=== PATIENT | male | born 1945 | race Caucasian/White ===

== ENCOUNTER 2020-10-15 13:47 | Observation (INO) ==
[2020-10-15 15:58] LABS: ABS Basophils 0.1 10^3/ul (0-0.2); ABS Eosinophils 0.1 10^3/ul (0-0.6); ABS Lymphocytes 1.7 10^3/ul (1.0-4.8); ABS Monocytes 0.6 10^3/ul (0-0.8); ABS Neutrophils 4.9 10^3/ul (1.5-7.7); Eosinophil % 1.8 %; Hematocrit 41 % (42-52); Hemoglobin 14.4 g/dL (14.0-18.0); Lymphocyte % 23.4 %; Mean Corpuscular HGB Conc 35 g/dL (31-36); Mean Corpuscular Hemoglobin 31 pg (27-31); Mean Corpuscular Volume 89 fL (80-94); Mean Platelet Volume 8.8 fL (7.4-10.4); Nucleated Red Blood Cells % 0.1; Platelet Count 135 10^3/uL (150-450); Red Blood Count 4.61 10^6 /uL (4.18-5.48); Red Cell Distribution Width 13 % (10-15); White Blood Count 7.4 10^3/uL (3.5-10.8)
[2020-10-15 16:14] LABS: Troponin I 0.01 ng/mL (<0.03)
[2020-10-15 16:15] LABS: Albumin 4.1 g/dL (3.2-5.2); Albumin/Globulin Ratio 1.5 (1-3); BUN/Creatinine Ratio 18.7 (8-20); EGFR African American 123.2 (>60); EGFR Non-African American 101.8 (>60); Globulin 2.7 g/dL (2-4); Magnesium 1.7 mg/dL (1.9-2.7); Potassium 4.1 mmol/L (3.5-5.0); Total Protein 6.8 g/dL (6.4-8.9)
[2020-10-15 16:30] LABS: Urine Appearance Clear; Urine Bilirubin Negative (Negative); Urine Blood Negative (Negative); Urine Color Yellow; Urine Glucose Negative (Negative); Urine Ketones Negative (Negative); Urine Nitrite Negative (Negative); Urine Protein Negative (Negative); Urine Specific Gravity 1.012 (1.010-1.030); Urine Urobilinogen Negative (Negative)
[2020-10-15 16:41] LABS: TSH Ultra Thyroid Stim Horm 2.02 mcIU/mL (0.34-5.60)
[2020-10-15] MEDS ORDERED: Ondansetron 4 mg VIAL 2 MG/ML 2 ml VIAL IV PRN (17:05)
[2020-10-15] MEDS ORDERED: Magnesium Hydroxide LIQ 30 ML UDC PO PRN (17:05)
[2020-10-15] MEDS ORDERED: NS 0.9% 1000 ml BAG 1,000 ML IV SCH (17:15)
[2020-10-15] MEDS ORDERED: NS 0.9% 1000 ml BAG 1,000 ML IV ONE (17:22)
[2020-10-16 05:39] LABS: BUN/Creatinine Ratio 17.7 (8-20); Calcium 7.9 mg/dL (8.6-10.3); EGFR Non-African American 95.9 (>60); Magnesium 1.8 mg/dL (1.9-2.7); Potassium 4.2 mmol/L (3.5-5.0)
[2020-10-16] MEDS ORDERED: Perflutren Lipid Microsphere 3 ML VIAL ONE (07:58)
[2020-10-16] MEDS ORDERED: Magnesium Sulfate 2 gm BAG 2 GM/50 ML BAG IVPB ONE (08:34)
[2020-10-16 11:41] VITALS: BP 110/74
== END 2020-10-16 12:48 | disposition home or self-care (01) ==
LOC: ED 13:47 → MEDTELE 13:47
PROVIDERS: ADMIT Pediatrics; ATTEND Internal Medicine

== ENCOUNTER 2024-07-18 18:42 | Inpatient (IN) ==
[2024-07-18] MEDS: NS 0.9% 1000 ml BAG 1,000 ML IV ONE (19:55)
[2024-07-18 20:02] LABS: ABS Basophils 0.1 10^3/uL (0.0-0.1); ABS Eosinophils 0.1 10^3/uL (0.0-0.5); ABS Lymphocytes 1.2 10^3/uL (1.0-4.8); ABS Monocytes 0.4 10^3/uL (0.0-1.1); ABS Neutrophils 7.1 10^3/uL (1.5-7.6); Hematocrit 37.7 % (38-53); Hemoglobin 12.8 g/dL (13.2-16.3); Mean Corpuscular Hemoglobin 30.4 pg (27-33); Mean Corpuscular Volume 89.2 fL (80-97); Mean Platelet Volume 7.8 fL (7.5-11.2); Platelet Count 153 10^3/uL (150-450); Red Blood Count 4.22 10^6/uL (4.06-5.63); White Blood Count 8.9 10^3/uL (3.6-10.2)
[2024-07-18 20:21] LABS: Activated Partial Thrombo Time 39.4 seconds (26.0-38.0); INR 1.39 (0.85-1.14)
[2024-07-18 20:48] LABS: Albumin/Globulin Ratio 1.5 (1-3); Calcium 8.9 mg/dL (8.6-10.3); Creatinine, Serum 0.72 mg/dL (0.67-1.17); Globulin 2.7 g/dL (2-4); Potassium 4.3 mmol/L (3.5-5.0); Total Bilirubin 0.9 mg/dL (0.2-1.0); Total Protein 6.7 g/dL (6.4-8.9); eGFR CKD-EPI 93.5 (>60)
[2024-07-18] MEDS ORDERED: Sulfur Hexaflouride MICROSPHR 25 MG VIAL IV PRN (22:26)
[2024-07-18 22:45] LABS: Magnesium 1.8 mg/dL (1.9-2.7)
[2024-07-18 23:00] LABS: TSH Ultra Thyroid Stim Horm 4.19 mcIU/mL (0.34-5.60)
[2024-07-18] MEDS: Furosemide 20 mg/2 ml IV VIAL IV ONE (23:37)
[2024-07-19] MEDS: Magnesium Sulfate 2 gm BAG 2 GM/50 ML BAG IVPB ONE (02:36)
[2024-07-19 05:32] LABS: ABS Basophils 0.1 10^3/uL (0.0-0.1); ABS Eosinophils 0.2 10^3/uL (0.0-0.5); ABS Lymphocytes 1.5 10^3/uL (1.0-4.8); ABS Monocytes 0.7 10^3/uL (0.0-1.1); ABS Neutrophils 7.6 10^3/uL (1.5-7.6); ABS Nucleated RBC 0.01 10^3/ul; Eosinophil % 1.8 %; Hematocrit 34.5 % (38-53); Hemoglobin 12.1 g/dL (13.2-16.3); Lymphocyte % 14.8 %; Mean Corpuscular Hemoglobin 31.1 pg (27-33); Mean Corpuscular Hgb Conc 34.9 g/dL (31-36); Mean Corpuscular Volume 89.1 fL (80-97); Mean Platelet Volume 7.8 fL (7.5-11.2); Platelet Count 130 10^3/uL (150-450); Red Blood Count 3.87 10^6/uL (4.06-5.63); Red Cell Distribution Width 14.1 % (12-17); White Blood Count 10.1 10^3/uL (3.6-10.2)
[2024-07-19 06:01] LABS: Calcium 8.1 mg/dL (8.6-10.3); Creatinine, Serum 0.74 mg/dL (0.67-1.17); Magnesium 2.3 mg/dL (1.9-2.7); Potassium 3.9 mmol/L (3.5-5.0); eGFR CKD-EPI 92.7 (>60)
[2024-07-19 06:25] LABS: Ferritin 143.2 ng/mL (24-336)
[2024-07-19 06:27] LABS: Folate 15.37 ng/mL (5.90-24.80)
[2024-07-19 06:32] LABS: Vitamin D Total 25(OH) 25.8 ng/mL (20-50)
[2024-07-19] MEDS: Lactated Ringers 1000 ml BAG 500 ML IV ONE ×2 (15:23→22:46)
[2024-07-19 15:48] LABS: ABS Basophils 0.1 10^3/uL (0.0-0.1); ABS Eosinophils 0.3 10^3/uL (0.0-0.5); ABS Lymphocytes 1.2 10^3/uL (1.0-4.8); ABS Monocytes 0.7 10^3/uL (0.0-1.1); ABS Neutrophils 6.7 10^3/uL (1.5-7.6); ABS Nucleated RBC 0.01 10^3/ul; Eosinophil % 3.4 %; Hematocrit 34.9 % (38-53); Hemoglobin 11.9 g/dL (13.2-16.3); Mean Corpuscular Hemoglobin 30.4 pg (27-33); Mean Corpuscular Volume 89.6 fL (80-97); Mean Platelet Volume 7.8 fL (7.5-11.2); Nucleated Red Blood Cells % 0.1 %/100WBC (0.0-0.8); Platelet Count 133 10^3/uL (150-450)
[2024-07-19] MEDS ORDERED: Morphine 2 MG/ML SYRINGE IV PRN (19:36)
[2024-07-19] MEDS: Enoxaparin 40 MG/0.4 ML SYR SUBCUT SCH (22:12)
[2024-07-20 03:20] LABS: ABS Basophils 0.1 10^3/uL (0.0-0.1); ABS Eosinophils 0.2 10^3/uL (0.0-0.5); ABS Lymphocytes 1.5 10^3/uL (1.0-4.8); ABS Monocytes 0.8 10^3/uL (0.0-1.1); ABS Neutrophils 7.1 10^3/uL (1.5-7.6); Eosinophil % 2.5 %; Hematocrit 33.9 % (38-53); Hemoglobin 11.6 g/dL (13.2-16.3); Lymphocyte % 15.6 %; Mean Corpuscular Hemoglobin 30.5 pg (27-33); Mean Corpuscular Hgb Conc 34.3 g/dL (31-36); Mean Corpuscular Volume 89.1 fL (80-97); Mean Platelet Volume 8.1 fL (7.5-11.2); Platelet Count 130 10^3/uL (150-450); Red Blood Count 3.81 10^6/uL (4.06-5.63); White Blood Count 9.8 10^3/uL (3.6-10.2)
[2024-07-20 03:50] LABS: Calcium 8.1 mg/dL (8.6-10.3); Creatinine, Serum 0.7 mg/dL (0.67-1.17); Magnesium 1.8 mg/dL (1.9-2.7); Potassium 3.8 mmol/L (3.5-5.0); eGFR CKD-EPI 94.3 (>60)
[2024-07-20] MEDS ORDERED: Senna TAB 8.6 mg TAB PO PRN (06:15)
[2024-07-20] MEDS ORDERED: Polyethylene Glycol 3350 17 GM PACKET PO PRN (06:15)
[2024-07-20] MEDS: Magnesium Sulfate 2 gm BAG 2 GM/50 ML BAG IVPB ONE (09:54)
[2024-07-20 13:12] LABS: ABS Basophils 0.1 10^3/uL (0.0-0.1); ABS Eosinophils 0.1 10^3/uL (0.0-0.5); ABS Lymphocytes 1.2 10^3/uL (1.0-4.8); ABS Monocytes 0.8 10^3/uL (0.0-1.1); ABS Neutrophils 7.5 10^3/uL (1.5-7.6); Eosinophil % 1.4 %; Hematocrit 33.4 % (38-53); Hemoglobin 11.8 g/dL (13.2-16.3); Mean Corpuscular Hemoglobin 31.3 pg (27-33); Mean Corpuscular Hgb Conc 35.2 g/dL (31-36); Mean Corpuscular Volume 88.9 fL (80-97); Platelet Count 121 10^3/uL (150-450); Red Blood Count 3.76 10^6/uL (4.06-5.63); White Blood Count 9.7 10^3/uL (3.6-10.2)
[2024-07-20] MEDS: NS 0.9% IV ONE ×2 (15:00→17:54)
[2024-07-20] MEDS: Calcium Carb (TUMS) 500 mg CHEW TAB PO PRN (18:23)
[2024-07-21] MEDS: Acetaminophen IV 1 GM/100ML 1,000 MG/100 ML BAG IV ONE (05:28)
[2024-07-21 07:00] LABS: ABS Eosinophils 0.2 10^3/uL (0.0-0.5); ABS Monocytes 0.8 10^3/uL (0.0-1.1); ABS Neutrophils 6.1 10^3/uL (1.5-7.6); Eosinophil % 2.3 %; Hematocrit 31.5 % (38-53); Hemoglobin 11.3 g/dL (13.2-16.3); Lymphocyte % 12.2 %; Mean Corpuscular Hemoglobin 31.5 pg (27-33); Mean Corpuscular Hgb Conc 35.9 g/dL (31-36); Mean Corpuscular Volume 87.8 fL (80-97); Mean Platelet Volume 7.6 fL (7.5-11.2); Platelet Count 109 10^3/uL (150-450); Red Blood Count 3.59 10^6/uL (4.06-5.63); Red Cell Distribution Width 13.7 % (12-17); White Blood Count 8.1 10^3/uL (3.6-10.2)
[2024-07-21 07:37] LABS: Calcium 7.4 mg/dL (8.6-10.3); Creatinine, Serum 0.55 mg/dL (0.67-1.17); Magnesium 1.9 mg/dL (1.9-2.7); Potassium 3.6 mmol/L (3.5-5.0); eGFR CKD-EPI 101.4 (>60)
[2024-07-21 08:14] LABS: Urine Appearance Clear; Urine Bilirubin Negative (Negative); Urine Blood Negative (Negative); Urine Color Yellow; Urine Glucose Negative (Negative); Urine Ketones Negative (Negative); Urine Nitrite Negative (Negative); Urine Protein Negative (Negative); Urine Specific Gravity 1.021 (1.002-1.030); Urine Urobilinogen Negative (Negative)
[2024-07-21] MEDS: Magnesium Sulfate 2 gm BAG 2 GM/50 ML BAG IVPB ONE (08:34)
[2024-07-21] MEDS: Potassium Chlor 20 meq TAB.ER PO ONE (08:52)
[2024-07-21] MEDS: Furosemide 20 mg/2 ml IV VIAL IV SLOW PU ONE (11:11)
[2024-07-21] MEDS ORDERED: Dexamethasone IV 4 MG/ML VIAL 1 ml VIAL ONE (14:13)
[2024-07-21] MEDS ORDERED: Propofol 10 MG/ML 20 ML BTL ONE (14:39)
[2024-07-21] MEDS ORDERED: Lidocaine 2% PF 5 ML VIAL ONE (14:39)
[2024-07-21] MEDS ORDERED: ceFAZolin 2 GM PREMIX 2 GM/50 ML BAG ONE (14:57)
[2024-07-21] MEDS ORDERED: ROPIVACAINE 5 MG/ML 30 ML BTL (0.5%) ONE (15:34)
[2024-07-21] MEDS ORDERED: Rocuronium 50 mg VIAL 10 mg/ml 5 ml VIAL (50 mg) ONE (15:57)
[2024-07-21] MEDS ORDERED: Midazolam 2 mg/2 ml VIAL 1 mg/ml 2 ml VIAL (2 mg) ONE (16:16)
[2024-07-21] MEDS ORDERED: fentaNYL 100 mcg/2 ml 50 MCG/ML VIAL ONE (16:16)
[2024-07-21] MEDS ORDERED: Ondansetron 4 mg VIAL 2 MG/ML 2 ml VIAL ONE (17:10)
[2024-07-21] MEDS ORDERED: Acetaminophen IV 1 GM/100ML 1,000 MG/100 ML BAG IV ONE (18:05)
[2024-07-21] MEDS ORDERED: Bacitracin OINTMENT TUBE ONE (18:54)
[2024-07-21] MEDS ORDERED: Magnesium Hydroxide LIQ 30 ML UDC PO PRN (19:18)
[2024-07-21] MEDS ORDERED: Polyethylene Glycol 3350 17 GM PACKET PO PRN (19:18)
[2024-07-21] MEDS: NS 0.9% 1000 ml BAG 1,000 ML IV SCH (21:05)
[2024-07-21] MEDS: Furosemide 20 mg/2 ml IV VIAL IV SLOW PU SCH (21:05)
[2024-07-22] MEDS: Magnesium Hydroxide LIQ 30 ML UDC PO SCH (00:17)
[2024-07-22] MEDS: ceFAZolin 2 GM PREMIX 2 GM/50 ML BAG IV SCH (00:35)
[2024-07-22 06:33] LABS: ABS Lymphocytes 0.5 10^3/uL (1.0-4.8); ABS Monocytes 0.4 10^3/uL (0.0-1.1); Hemoglobin 10.4 g/dL (13.2-16.3); Lymphocyte % 6.3 %; Mean Corpuscular Hemoglobin 30.5 pg (27-33); Mean Corpuscular Hgb Conc 34.6 g/dL (31-36); Mean Corpuscular Volume 88.2 fL (80-97); Mean Platelet Volume 8.2 fL (7.5-11.2); Platelet Count 124 10^3/uL (150-450); Red Cell Distribution Width 13.6 % (12-17); White Blood Count 7.9 10^3/uL (3.6-10.2)
[2024-07-22 06:52] LABS: Calcium 7.4 mg/dL (8.6-10.3); Creatinine, Serum 0.61 mg/dL (0.67-1.17); Magnesium 1.8 mg/dL (1.9-2.7); Potassium 4.4 mmol/L (3.5-5.0); eGFR CKD-EPI 98.3 (>60)
[2024-07-23 05:59] LABS: ABS Eosinophils 0.1 10^3/uL (0.0-0.5); ABS Lymphocytes 1.3 10^3/uL (1.0-4.8); ABS Monocytes 0.8 10^3/uL (0.0-1.1); ABS Neutrophils 6.5 10^3/uL (1.5-7.6); Eosinophil % 1.4 %; Hemoglobin 10.1 g/dL (13.2-16.3); Lymphocyte % 14.4 %; Mean Corpuscular Hemoglobin 30.9 pg (27-33); Mean Corpuscular Hgb Conc 34.9 g/dL (31-36); Mean Corpuscular Volume 88.4 fL (80-97); Mean Platelet Volume 8.4 fL (7.5-11.2); Platelet Count 152 10^3/uL (150-450); Red Blood Count 3.28 10^6/uL (4.06-5.63); Red Cell Distribution Width 13.7 % (12-17); White Blood Count 8.7 10^3/uL (3.6-10.2)
[2024-07-23 06:27] LABS: Calcium 7.9 mg/dL (8.6-10.3); Creatinine, Serum 0.7 mg/dL (0.67-1.17); Magnesium 1.7 mg/dL (1.9-2.7); Potassium 4.1 mmol/L (3.5-5.0); eGFR CKD-EPI 94.3 (>60)
[2024-07-23] MEDS: Magnesium Sulfate 2 gm BAG 2 GM/50 ML BAG IVPB ONE (07:53)
[2024-07-23] MEDS: Magnesium Sulfate IV 1GM/100ML 1 GM/100 ML BAG IV ONE (12:51)
[2024-07-24] MEDS: Latanoprost 0.005% 2.5 ml BTL BOTH EYES SCH (21:31)
[2024-07-25 10:26] VITALS: BP 94/68
== END 2024-07-25 11:00 | DRG 481 ==
LOC: ED 18:42 → EDHOLD 18:42 → SUATTDRO 21:05 → SSU 07-19 09:36 → SUATTDRO 07-19 14:58
PROVIDERS: ADMIT Student in an Organized Health Care Education/Training Program; ATTEND Internal Medicine

== ENCOUNTER 2024-07-25 07:16 | Inpatient (IN) ==
[2024-07-25] MEDS ORDERED: Magnesium Hydroxide LIQ 30 ML UDC PO PRN (12:20)
[2024-07-25] MEDS ORDERED: Senna TAB 8.6 mg TAB PO PRN (12:20)
[2024-07-25] MEDS: Calcium Carb (TUMS) 500 mg CHEW TAB PO PRN (18:59)
[2024-07-25] MEDS: Latanoprost 0.005% 2.5 ml BTL BOTH EYES SCH (20:55)
[2024-07-26 06:53] LABS: Calcium 7.5 mg/dL (8.6-10.3); Creatinine, Serum 0.57 mg/dL (0.67-1.17); Potassium 3.5 mmol/L (3.5-5.0); eGFR CKD-EPI 100.3 (>60)
[2024-07-26] MEDS: HYDROcodone/ACETAMIN 5/325 mg TAB PO PRN (09:37)
[2024-07-27 07:06] LABS: ABS Eosinophils 0.2 10^3/uL (0.0-0.5); ABS Lymphocytes 1.3 10^3/uL (1.0-4.8); ABS Monocytes 0.6 10^3/uL (0.0-1.1); Eosinophil % 3.4 %; Hematocrit 25.3 % (38-53); Hemoglobin 8.8 g/dL (13.2-16.3); Mean Corpuscular Hemoglobin 30.7 pg (27-33); Mean Corpuscular Hgb Conc 34.7 g/dL (31-36); Mean Corpuscular Volume 88.6 fL (80-97); Mean Platelet Volume 6.9 fL (7.5-11.2); Nucleated Red Blood Cells % 0.1 %/100WBC (0.0-0.8); Platelet Count 195 10^3/uL (150-450); Red Blood Count 2.85 10^6/uL (4.06-5.63); Red Cell Distribution Width 13.9 % (12-17); White Blood Count 6.2 10^3/uL (3.6-10.2)
[2024-07-27 07:28] LABS: Albumin 2.9 g/dL (3.2-5.2); Albumin/Globulin Ratio 1.4 (1-3); Calcium 7.8 mg/dL (8.6-10.3); Creatinine, Serum 0.64 mg/dL (0.67-1.17); Globulin 2.1 g/dL (2-4); Potassium 3.9 mmol/L (3.5-5.0); eGFR CKD-EPI 96.9 (>60)
[2024-07-29 06:57] LABS: Hematocrit 25.5 % (38-53); Hemoglobin 9.1 g/dL (13.2-16.3); Mean Corpuscular Hemoglobin 31.2 pg (27-33); Mean Corpuscular Hgb Conc 35.5 g/dL (31-36); Mean Corpuscular Volume 87.9 fL (80-97); Mean Platelet Volume 7.1 fL (7.5-11.2); Platelet Count 209 10^3/uL (150-450); Red Cell Distribution Width 13.9 % (12-17); White Blood Count 6.4 10^3/uL (3.6-10.2)
[2024-07-29 08:27] LABS: ABS Basophils 0.1 10^3/uL (0.0-0.1); ABS Eosinophils 0.2 10^3/uL (0.0-0.5); ABS Lymphocytes 1.4 10^3/uL (1.0-4.8); ABS Monocytes 0.6 10^3/uL (0.0-1.1); ABS Neutrophils 4.1 10^3/uL (1.5-7.6); Anisocytosis 1+; Lymphocyte % 21.8 %; Nucleated Red Blood Cells % 0.1 %/100WBC (0.0-0.8); Polychromasia 1+
[2024-08-01 07:27] LABS: Calcium 7.6 mg/dL (8.6-10.3); Creatinine, Serum 0.64 mg/dL (0.67-1.17); Potassium 3.5 mmol/L (3.5-5.0); eGFR CKD-EPI 96.9 (>60)
[2024-08-03 07:04] LABS: ABS Eosinophils 0.1 10^3/uL (0.0-0.5); ABS Lymphocytes 1.3 10^3/uL (1.0-4.8); ABS Monocytes 0.5 10^3/uL (0.0-1.1); ABS Neutrophils 4.5 10^3/uL (1.5-7.6); Eosinophil % 2.1 %; Hematocrit 24.8 % (38-53); Hemoglobin 8.6 g/dL (13.2-16.3); Lymphocyte % 19.5 %; Mean Corpuscular Hemoglobin 30.7 pg (27-33); Mean Corpuscular Hgb Conc 34.9 g/dL (31-36); Mean Corpuscular Volume 87.9 fL (80-97); Mean Platelet Volume 6.8 fL (7.5-11.2); Platelet Count 220 10^3/uL (150-450); Red Blood Count 2.82 10^6/uL (4.06-5.63); Red Cell Distribution Width 13.6 % (12-17); White Blood Count 6.5 10^3/uL (3.6-10.2)
[2024-08-03 07:34] LABS: Albumin/Globulin Ratio 1.5 (1-3); Calcium 7.9 mg/dL (8.6-10.3); Creatinine, Serum 0.6 mg/dL (0.67-1.17); Potassium 3.9 mmol/L (3.5-5.0); Total Bilirubin 0.9 mg/dL (0.2-1.0); eGFR CKD-EPI 98.8 (>60)
[2024-08-04] MEDS: PAIN RELIEVING RUB (MENTHOL/SALICYLATE) 1 APPLIC TUBE TOPICAL PRN (17:34)
[2024-08-07] MEDS: Albuterol HFA INHALER 8 gm MDI INH PRN (16:04)
[2024-08-10 06:53] LABS: ABS Eosinophils 0.1 10^3/uL (0.0-0.5); ABS Lymphocytes 1.2 10^3/uL (1.0-4.8); ABS Monocytes 0.5 10^3/uL (0.0-1.1); ABS Neutrophils 3.9 10^3/uL (1.5-7.6); ABS Nucleated RBC 0.01 10^3/ul; Hematocrit 26.1 % (38-53); Lymphocyte % 21.6 %; Mean Corpuscular Hemoglobin 29.7 pg (27-33); Mean Corpuscular Hgb Conc 34.4 g/dL (31-36); Mean Corpuscular Volume 86.4 fL (80-97); Mean Platelet Volume 6.9 fL (7.5-11.2); Nucleated Red Blood Cells % 0.1 %/100WBC (0.0-0.8); Platelet Count 208 10^3/uL (150-450); Red Blood Count 3.03 10^6/uL (4.06-5.63); Red Cell Distribution Width 13.9 % (12-17); White Blood Count 5.7 10^3/uL (3.6-10.2)
[2024-08-10 07:11] LABS: Albumin 3.1 g/dL (3.2-5.2); Albumin/Globulin Ratio 1.3 (1-3); Calcium 7.9 mg/dL (8.6-10.3); Creatinine, Serum 0.61 mg/dL (0.67-1.17); Globulin 2.4 g/dL (2-4); Potassium 3.2 mmol/L (3.5-5.0); Total Bilirubin 0.9 mg/dL (0.2-1.0); Total Protein 5.5 g/dL (6.4-8.9); eGFR CKD-EPI 98.3 (>60)
[2024-08-10] MEDS: Potassium Chlor 20 meq TAB.ER PO ONE (21:20)
[2024-08-11] MEDS: Potassium Chlor 20 meq TAB.ER PO SCH (08:55)
[2024-08-12 04:15] VITALS: BP 158/94
[2024-08-12] MEDS: Potassium Chlor 20 meq TAB.ER PO SCH (08:47)
[2024-08-12] MEDS: Potassium Chlor 20 meq TAB.ER PO ONE (12:52)
== END 2024-08-12 13:00 | DRG 560 ==
LOC: PMRU 11:48
PROVIDERS: ADMIT Physical Medicine & Rehabilitation; ATTEND Physical Medicine & Rehabilitation